=== PATIENT | male | born 1970 | race Caucasian/White ===

== ENCOUNTER 2017-04-18 15:51 | Emergency (ER) | payer MEDICAID ==
[~2017-04-18] VITALS: Ht 165.1 cm; Wt 63.5 kg
[2017-04-18 16:08] VITALS: BP 121/73
[2017-04-19 04:20] LABS: Hepatitis B Surface Antibody Negative
[2017-04-19 04:31] LABS: Hepatitis B Surface Antigen Negative (Negative)
== END 2017-04-19 03:26 | disposition home or self-care (01) ==
LOC: ER 15:58
DX: S61.256A Open bite of right little finger without damage to nail, initial encounter (principal); F17.210 Nicotine dependence, cigarettes, uncomplicated; Y04.1XXA Assault by human bite, initial encounter; Y93.89 Activity, other specified; Y92.89 Other specified places as the place of occurrence of the external cause; Y99.8 Other external cause status
CPT/HCPCS: 36415; 86703; 86706; 86803; 87340

== ENCOUNTER 2023-06-26 10:04 | Day surgery (SDC) | payer MEDICAID ==
[~2023-06-26] VITALS: Ht 165.1 cm; Wt 68.0 kg
[~2023-06-26 10:04] MED LIST: CELE200C PO; GABA-1250 PO; HYDR-4798 PO; LAMO200T2 PO; LURA40TA2 PO; METH18TA5 PO; NAP500T PO; OMEP20TA PO
[2023-06-26] MEDS ORDERED: ceFAZolin 2 GM/D5W50ml 50 ML IV ONE (10:12)
[2023-06-26] MEDS ORDERED: EPINEPHrine HCL 1 MG/1 ML AMP ONE ×2 (10:44→10:54)
[2023-06-26] MEDS ORDERED: BUPIVACAINE HCL 50 ML ONE (10:45)
[2023-06-26] MEDS ORDERED: fentaNYL CITRATE 5 ML ONE (11:04)
[2023-06-26] MEDS ORDERED: PROPOFOL 10 MG/ML 20 ML IV ONE (11:04)
[2023-06-26] MEDS ORDERED: ROCURONIUM 10MG/ML 10ML VIAL IV ONE (11:04)
[2023-06-26] MEDS ORDERED: MIDAZOLAM HCL 2MG/2ML 2ml VIAL (1mg/ml) ONE (11:04)
[2023-06-26] MEDS ORDERED: LIDOCAINE 1% INJ PF 5ML AMP ONE (11:05)
[2023-06-26] MEDS ORDERED: HYDROmorphone HCL 2 MG/ML VL/or syr IV PRN (12:00)
[2023-06-26] MEDS ORDERED: ONDANSETRON HCL 4 MG/2 ML VIAL IV PRN (12:00)
[2023-06-26] MEDS ORDERED: ONDANSETRON HCL 4 MG/2 ML VIAL ONE (12:17)
[2023-06-26 12:20] VITALS: TEMP 97.7; O2SAT 100
[2023-06-26] MEDS ORDERED: NEOSTIGMINE 1 MG/ML INJ (10mg/10ML VIAL) IV ONE (12:35)
[2023-06-26] MEDS ORDERED: GLYCOPYRROLATE 0.2 MG/ML 1ML VIAL IV ONE (12:35)
[2023-06-26 13:18] VITALS: BP 111/76; PULSE 66; RESP 14; O2SAT 97
== END 2023-06-26 13:25 | disposition home or self-care (01) ==
LOC: SUR 10:04
PROVIDERS: ATTEND Orthopaedic Surgery
DX: S83.242A Other tear of medial meniscus, current injury, left knee, initial encounter (principal); M94.262 Chondromalacia, left knee; K21.9 Gastro-esophageal reflux disease without esophagitis; G62.9 Polyneuropathy, unspecified; E78.5 Hyperlipidemia, unspecified; F17.210 Nicotine dependence, cigarettes, uncomplicated; Z89.511 Acquired absence of right leg below knee; Z86.73 Personal history of transient ischemic attack (TIA), and cerebral infarction without residual deficits; X58.XXXA Exposure to other specified factors, initial encounter; Y93.89 Activity, other specified; Y92.89 Other specified places as the place of occurrence of the external cause; Y99.8 Other external cause status
CPT/HCPCS: 29881; J0171; J0690; J2250; J2405; J2704; J3010; J3490